=== PATIENT | female | born 1960 | race Caucasian/White ===

== ENCOUNTER → 2016-11-10 | Outpatient (CLI) | payer BC ==
[~2016-11-10] MED LIST: AMX500 PO; ESCI10TA17 PO
[2016-11-10 13:56] LABS: ALT/SGPT 44 U/L (12-78); BLOOD UREA NITROGEN 13 mg/dl (7-18); BUN/CREATININE RATIO 20.2 (10-20); CALCIUM 8.9 mg/dl (8.5-10.1); CARBON DIOXIDE 28 mmol/L (21-32); CHLORIDE 105 mmol/L (98-107); CHOLESTEROL 169 mg/dl (0-200); CREATININE 0.66 mg/dl (0.60-1.20); GLUCOSE 87 mg/dl (70-99); POTASSIUM 4.1 mmol/L (3.5-5.1); SODIUM 140 mmol/L (136-145); TRIGLYCERIDES 55 mg/dl (0-150); VERY LOW DENSITY LIPOPROT CALC 11 mg/dl
[2016-11-10 14:01] LABS: ALKALINE PHOSPHATASE 62 U/L (45-117); AST/SGOT 23 U/L (15-37); CHOLESTEROL/HDL RATIO 2.2; HDL CHOLESTEROL 76 mg/dl; LDL CHOLESTEROL CALCULATED 82 mg/dl
== END | disposition home or self-care (01) ==
LOC: C.LABBC 10:00
PROVIDERS: ATTEND Internal Medicine
DX: E78.5 Hyperlipidemia, unspecified (principal)

== ENCOUNTER → 2016-12-15 | Outpatient (CLI) | payer BC ==
--- NOTE | 2016-12-15 12:43 | DIAGNOSTIC IMAGING REPORT ---
LEFT HAND 3 VIEWS CLINICAL HISTORY: Left hand pain. FINDINGS: 3 views of the left hand are obtained. No prior studies are available for comparison at the time of dictation. The skeletal structures are osteopenic. No fracture is seen. The joint spaces of the hand are well-maintained. No erosive change is identified. The overlying soft tissues are within normal limits. IMPRESSION: Unremarkable radiographic assessment of the left hand. Electronically signed by: Maxx Teixeira M.D. 12/15/2016 12:41 PM Dictated Date/Time: 12/15/2016 12:40 PM
--- NOTE | 2016-12-15 12:43 | DIAGNOSTIC IMAGING REPORT ---
RIGHT HAND MIN 3 VIEWS ROUTINE CLINICAL HISTORY: Right hand pain. COMPARISON: None. DISCUSSION: No acute fractures or subluxations are visualized. There is mild periarticular osteopenia. There are no bony erosions. There are mild osteoarthritic changes most pronounced the level the first metacarpal phalangeal joint. IMPRESSION: 1. Mild periarticular osteopenia 2. No evidence of erosive disease 3. No acute fractures or subluxations Electronically signed by: Alexey Hutchinson M.D. 12/15/2016 12:41 PM Dictated Date/Time: 12/15/2016 12:40 PM
== END | disposition home or self-care (01) ==
LOC: C.RADBC 12:18
PROVIDERS: ATTEND Internal Medicine
DX: M79.641 Pain in right hand (principal); M79.642 Pain in left hand

== ENCOUNTER → 2017-08-29 | Outpatient (CLI) | payer BC | END | disposition home or self-care (01) | LOC: C.PAPS 09:38 | PROVIDERS: ATTEND Obstetrics & Gynecology | DX: Z01.419 Encounter for gynecological examination (general) (routine) without abnormal findings (principal) ==

== ENCOUNTER → 2017-09-07 | Outpatient (CLI) | payer BC ==
--- NOTE | 2017-09-07 15:51 | MAMMOGRAPHY REPORT ---
UNILATERAL RIGHT DIGITAL SCREENING MAMMOGRAM TOMOSYNTHESIS WITH CAD: 09/07/2017 CLINICAL HISTORY: Asymptomatic. Personal history of breast cancer. TECHNIQUE: Breast tomosynthesis in addition to standard 2D mammography was performed. Current study was also evaluated with a Computer Aided Detection (CAD) system. COMPARISON: Comparison is made to exams dated: 06/09/2016 mammogram, 06/04/2015 mammogram, 05/15/2014 say mogram, 05/09/2013 mammogram, 05/03/2012 mammogram, and 04/28/2011 mammogram - [facility] er. BREAST COMPOSITION: There are scattered areas of fibroglandular density in the right breast. FINDINGS: There are no suspicious masses, calcifications, or areas of architectural distortion noted in the right breast. There has been no significant interval change compared to prior exams. Scatter ed benign appearing right breast calcifications are not significantly changed. IMPRESSION: ACR BI-RADS CATEGORY 2: BENIGN There is no mammographic evidence of malignancy in the right breast. A 1 year screening mammogram is recommended. The patient will receive written notification of the results. Approximately 10% of breast cancers are not detected with mammography. A negative mammographic report should not delay biopsy if a clinically suggestive mass is present. Natasha Riggs M.D. 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
== END | disposition home or self-care (01) ==
LOC: C.MAMM 13:49
PROVIDERS: ATTEND Internal Medicine
DX: Z12.31 Encounter for screening mammogram for malignant neoplasm of breast (principal); Z90.12 Acquired absence of left breast and nipple

== ENCOUNTER → 2017-11-16 | Outpatient (CLI) | payer OTHER ==
[2017-11-16 11:00] LABS: BASO % 0.5 %; BASO ABS # 0.03 K/uL (0-0.2); EOS ABS # 0.25 K/uL (0-0.5); HEMATOCRIT 40.1 % (37-47); HEMOGLOBIN 13.5 g/dL (12.0-16.0); IG# 0.01 K/uL (0.00-0.02); LYMPH % 28.5 %; LYMPH ABS # 1.77 K/uL (1.2-3.4); MEAN CELL VOLUME 86.1 fL (80-100); MEAN CORPUSCULAR HGB CONC 33.7 g/dl (32-36); MEAN PLATELET VOLUME 10.5 fL (7.4-10.4); MONO % 9.7 %; NEUT % 57.1 %; NEUT ABS # 3.55 K/uL (1.4-6.5); PLATELET COUNT 337 K/uL (130-400); RED CELL DISTRIBUTION WIDTH CV 13.5 % (11.5-14.5); RED CELL DISTRIBUTION WIDTH SD 42.1 fL (36.4-46.3); WHITE BLOOD COUNT 6.21 K/uL (4.8-10.8)
[2017-11-16 11:11] LABS: ALBUMIN 3.8 gm/dl (3.4-5.0); ALT/SGPT 36 U/L (12-78); BLOOD UREA NITROGEN 15 mg/dl (7-18); CALCIUM 9.5 mg/dl (8.5-10.1); CARBON DIOXIDE 30 mmol/L (21-32); CREATININE 0.67 mg/dl (0.60-1.20); GLUCOSE 85 mg/dl (70-99); SODIUM 137 mmol/L (136-145)
[2017-11-16 11:14] LABS: ALKALINE PHOSPHATASE 60 U/L (45-117); AST/SGOT 20 U/L (15-37); CHOLESTEROL 216 mg/dl (0-200); LDL CHOLESTEROL CALCULATED 108 mg/dl; TOTAL PROTEIN 7.5 gm/dl (6.4-8.2)
== END | disposition home or self-care (01) ==
LOC: C.LABBC 08:55
PROVIDERS: ATTEND Internal Medicine
DX: Z00.00 Encounter for general adult medical examination without abnormal findings (principal); Z11.59 Encounter for screening for other viral diseases; E78.5 Hyperlipidemia, unspecified; C50.919 Malignant neoplasm of unspecified site of unspecified female breast